=== PATIENT | female | born 1935 | race Asian ===

== ENCOUNTER 2018-10-21 05:33 | Inpatient (IN) | payer BC ==
[~2018-10-21] VITALS: Ht 160 cm; Wt 44.1 kg
[2018-10-21 06:11] LABS: BASOPHIL % 0.4 % (0-2); PLATELET COUNT 236 x10^3mcL (130-400)
[2018-10-21 06:12] LABS: RED CELL DISTRIBUTION WIDTH 17.8 % (11.5-14.5)
[2018-10-21] MEDS ORDERED: LIPI20 PO (06:20)
[2018-10-21] MEDS ORDERED: PEPCID20 MG PO (06:20)
[2018-10-21] MEDS ORDERED: NOR5 PO (06:20)
[2018-10-21] MEDS ORDERED: DETROL LA2 MG PO (06:21)
[2018-10-21] MEDS ORDERED: METFORMIN500 M1 PO (06:21)
[2018-10-21] MEDS ORDERED: MULTI-VITAMINS1 TAB PO (06:21)
[2018-10-21] MEDS ORDERED: CALCIUM CARB500 M1 PO (06:21)
[2018-10-21] MEDS ORDERED: DIO160 PO (06:22)
[2018-10-21] MEDS ORDERED: VITAMIN B121000 MCG PO (06:22)
[2018-10-21] MEDS ORDERED: DIOVAN80 MG PO (06:22)
[2018-10-21] MEDS ORDERED: COUMADIN2 MG PO (06:22)
[2018-10-21] MEDS ORDERED: TRIPLE ACTION JOINT PO (06:23)
[2018-10-21 06:30] LABS: CALCIUM 8.8 mg/dL (8.5-10.1); CARBON DIOXIDE 29.2 mmol/L (21-32); CHLORIDE SERUM 104 mmol/L (98-107); CREATININE SERUM 0.9 mg/dL (0.6-1.0); GLUCOSE SERUM 117 mg/dL (74-106); POTASSIUM SERUM 4.1 mmol/L (3.5-5.1); SODIUM SERUM 137 mmol/L (136-145)
[2018-10-21 06:34] LABS: ALBUMIN 3.4 g/dL (3.4-5.0); ALKALINE PHOSPHATASE 101 U/L (46-116); ALT/SGPT 22 U/L (14-59); AST/SGOT 19 U/L (15-37); BILIRUBIN TOTAL 0.33 mg/dL (0.20-1.00); TOTAL PROTEIN, SERUM 8.2 g/dL (6.4-8.2)
[2018-10-21 08:07] LABS: microscopic required? YES; urine erythrocyte NEGATIVE (NEGATIVE)
[2018-10-21 15:03] LABS: MAGNESIUM 2.1 mg/dL (1.8-2.4); PHOSPHOROUS 3.6 mg/dL (2.5-4.9)
[2018-10-21 15:10] LABS: CHOLESTEROL/HDL RATIO 2.1
[2018-10-21 15:20] VITALS: BP 148/68
[2018-10-21 15:26] VITALS: Ht 160 cm; Wt 44.1 kg
[2018-10-21 21:40] VITALS: BP 138/55
[2018-10-22 05:38] VITALS: BP 157/61
[2018-10-22 06:22] LABS: CALCIUM 8.3 mg/dL (8.5-10.1); CARBON DIOXIDE 25.7 mmol/L (21-32); CHLORIDE SERUM 102 mmol/L (98-107); CREATININE SERUM 0.7 mg/dL (0.6-1.0); GLUCOSE SERUM 129 mg/dL (74-106); MAGNESIUM 2.2 mg/dL (1.8-2.4); PHOSPHOROUS 3.2 mg/dL (2.5-4.9); POTASSIUM SERUM 3.6 mmol/L (3.5-5.1); SODIUM SERUM 135 mmol/L (136-145)
[2018-10-22 06:23] LABS: BASOPHIL % 0.2 % (0-2); PLATELET COUNT 241 x10^3mcL (130-400)
[2018-10-22 07:42] LABS: RED CELL DISTRIBUTION WIDTH 17.3 % (11.5-14.5)
[2018-10-22 09:06] VITALS: BP 135/39
[2018-10-22 12:15] VITALS: BP 127/27
[2018-10-22 17:48] VITALS: BP 134/57
[2018-10-22 20:58] VITALS: BP 144/55
[2018-10-23 05:05] VITALS: BP 133/61
[2018-10-23 07:25] LABS: BASOPHIL % 0.1 % (0-2); PLATELET COUNT 249 x10^3mcL (130-400)
[2018-10-23 07:27] LABS: RED CELL DISTRIBUTION WIDTH 17.5 % (11.5-14.5)
[2018-10-23 08:07] VITALS: BP 142/55
[2018-10-23 08:12] LABS: CALCIUM 8.1 mg/dL (8.5-10.1); CARBON DIOXIDE 24.7 mmol/L (21-32); CHLORIDE SERUM 104 mmol/L (98-107); CREATININE SERUM 0.6 mg/dL (0.6-1.0); GLUCOSE SERUM 116 mg/dL (74-106); MAGNESIUM 2.2 mg/dL (1.8-2.4); PHOSPHOROUS 2.6 mg/dL (2.5-4.9); POTASSIUM SERUM 3.5 mmol/L (3.5-5.1); SODIUM SERUM 139 mmol/L (136-145)
[2018-10-23 12:29] VITALS: BP 129/49
[2018-10-23 17:43] VITALS: BP 139/55
[2018-10-23 20:23] VITALS: BP 122/56
[2018-10-24 05:33] VITALS: BP 142/59
[2018-10-24 07:28] LABS: BASOPHIL % 0.2 % (0-2); PLATELET COUNT 246 x10^3mcL (130-400)
[2018-10-24 07:43] LABS: RED CELL DISTRIBUTION WIDTH 17.6 % (11.5-14.5)
[2018-10-24 07:48] LABS: CALCIUM 8.3 mg/dL (8.5-10.1); CARBON DIOXIDE 24.3 mmol/L (21-32); CHLORIDE SERUM 103 mmol/L (98-107); CREATININE SERUM 0.6 mg/dL (0.6-1.0); GLUCOSE SERUM 113 mg/dL (74-106); MAGNESIUM 2.1 mg/dL (1.8-2.4); PHOSPHOROUS 3.2 mg/dL (2.5-4.9); POTASSIUM SERUM 3.6 mmol/L (3.5-5.1); SODIUM SERUM 136 mmol/L (136-145)
[2018-10-24 08:45] VITALS: BP 129/53
[2018-10-24 12:50] VITALS: BP 138/51
[2018-10-24 16:44] VITALS: BP 132/53
[2018-10-24 21:03] VITALS: BP 150/54
[2018-10-25 05:40] VITALS: BP 146/65
[2018-10-25 06:34] LABS: BASOPHIL % 0.3 % (0-2); PLATELET COUNT 300 x10^3mcL (130-400)
[2018-10-25 07:17] LABS: CALCIUM 8.6 mg/dL (8.5-10.1); CARBON DIOXIDE 25.8 mmol/L (21-32); CHLORIDE SERUM 103 mmol/L (98-107); CREATININE SERUM 0.7 mg/dL (0.6-1.0); GLUCOSE SERUM 102 mg/dL (74-106); MAGNESIUM 2.1 mg/dL (1.8-2.4); PHOSPHOROUS 3.1 mg/dL (2.5-4.9); SODIUM SERUM 139 mmol/L (136-145)
[2018-10-25 08:22] VITALS: BP 141/51
[2018-10-25 12:03] VITALS: BP 129/54
[2018-10-25 16:18] VITALS: BP 146/58
[2018-10-25 21:41] VITALS: BP 132/52
[2018-10-26 05:17] VITALS: BP 155/57
[2018-10-26 06:27] LABS: CARBON DIOXIDE 25.9 mmol/L (21-32); CHLORIDE SERUM 102 mmol/L (98-107); CREATININE SERUM 0.7 mg/dL (0.6-1.0); GLUCOSE SERUM 88 mg/dL (74-106); MAGNESIUM 2.2 mg/dL (1.8-2.4); PHOSPHOROUS 3.7 mg/dL (2.5-4.9); SODIUM SERUM 139 mmol/L (136-145)
[2018-10-26 07:34] LABS: BASOPHIL % 0.5 % (0-2); PLATELET COUNT 328 x10^3mcL (130-400); RED CELL DISTRIBUTION WIDTH 17.9 % (11.5-14.5)
[2018-10-26 09:42] VITALS: BP 143/64
[2018-10-26 12:12] VITALS: BP 148/67
[2018-10-26 17:55] VITALS: BP 133/53
[2018-10-26 20:41] VITALS: BP 139/60
[2018-10-27 04:51] VITALS: BP 140/62
[2018-10-27 08:03] LABS: BASOPHIL % 0.2 % (0-2); PLATELET COUNT 326 x10^3mcL (130-400); RED CELL DISTRIBUTION WIDTH 17.5 % (11.5-14.5)
[2018-10-27 08:10] LABS: CALCIUM 8.9 mg/dL (8.5-10.1); CARBON DIOXIDE 27.4 mmol/L (21-32); CHLORIDE SERUM 100 mmol/L (98-107); CREATININE SERUM 0.7 mg/dL (0.6-1.0); GLUCOSE SERUM 105 mg/dL (74-106); POTASSIUM SERUM 4.3 mmol/L (3.5-5.1); SODIUM SERUM 136 mmol/L (136-145)
[2018-10-27 09:55] VITALS: BP 132/50
[2018-10-27] MEDS ORDERED: ECO81 PO (14:00)
[2018-10-27] MEDS ORDERED: DIO80 PO (14:02)
[2018-10-27 14:26] VITALS: BP 153/69
[2018-10-27 15:49] VITALS: BP 153/69
[2018-10-27 17:00] VITALS: BP 120/53
== END 2018-10-27 19:30 | DRG 488 ==
LOC: ED 05:33 → DU 14:31 → MU 14:31 → DU 14:54 → MU 14:57 → DU 16:49
PROVIDERS: Emergency Medicine; Family Medicine; General Practice
PROC: 0S9D3ZZ Drainage of Left Knee Joint, Percutaneous Approach (ICD-10-PCS; principal; 2018-10-22)
PROC: 0S9D3ZZ Drainage of Left Knee Joint, Percutaneous Approach (ICD-10-PCS; 2018-10-24)
PROC: 0S9D0ZZ Drainage of Left Knee Joint, Open Approach (ICD-10-PCS; 2018-10-26)
DX: M25.062 Hemarthrosis, left knee (principal); N17.0 Acute kidney failure with tubular necrosis; I69.354 Hemiplegia and hemiparesis following cerebral infarction affecting left non-dominant side; Z68.1 Body mass index [BMI] 19.9 or less, adult; N39.0 Urinary tract infection, site not specified; E11.9 Type 2 diabetes mellitus without complications; E83.51 Hypocalcemia; E78.5 Hyperlipidemia, unspecified; I10 Essential (primary) hypertension; D64.9 Anemia, unspecified; Z79.01 Long term (current) use of anticoagulants; Z79.84 Long term (current) use of oral hypoglycemic drugs; Z91.19 Patient's noncompliance with other medical treatment and regimen
CPT/HCPCS: 82962; 83880; 97110-GP; 97530-GP; J0696; J1170; J2001; J2270; J2405; J3010; J7509; Q0092; Q9967

== ENCOUNTER 2019-10-24 16:32 | Emergency (ER) | payer OTHER ==
[~2019-10-24] VITALS: Ht 157.5 cm; Wt 52.2 kg
[~2019-10-24 16:32] MED LIST: CALCIUM CARB500 M1 PO; COUMADIN2 MG PO; DETROL LA2 MG PO; DIO160 PO; DIO80 PO; DIOVAN80 MG PO; ECO81 PO; LIPI20 PO; METFORMIN500 M1 PO; MULTI-VITAMINS1 TAB PO; NOR5 PO; PEPCID20 MG PO; TRIPLE ACTION JOINT PO; VITAMIN B121000 MCG PO
[2019-10-24 16:39] VITALS: Ht 157.5 cm; Wt 52.2 kg
[2019-10-24 18:47] LABS: BASOPHIL % 0.5 % (0-2); PLATELET COUNT 156 x10^3mcL (130-400)
[2019-10-24 18:49] LABS: RED CELL DISTRIBUTION WIDTH 15.4 % (11.5-14.5)
[2019-10-24 18:54] LABS: CALCIUM 8.6 mg/dL (8.5-10.1); CARBON DIOXIDE 27.9 mmol/L (21-32); CHLORIDE SERUM 103 mmol/L (98-107); GLUCOSE SERUM 139 mg/dL (74-106); POTASSIUM SERUM 3.7 mmol/L (3.5-5.1); SODIUM SERUM 139 mmol/L (136-145)
[2019-10-25 00:47] VITALS: BP 144/45
== END 2019-10-25 00:47 | disposition home or self-care (01) ==
LOC: ED 16:32
PROVIDERS: Student in an Organized Health Care Education/Training Program
DX: M25.551 Pain in right hip (principal); I10 Essential (primary) hypertension; E11.9 Type 2 diabetes mellitus without complications; R22.41 Localized swelling, mass and lump, right lower limb; Z98.890 Other specified postprocedural states
CPT/HCPCS: 36415; 85378; Q0092

== ENCOUNTER 2020-01-05 10:23 | Emergency (ER) | payer OTHER ==
[~2020-01-05] VITALS: Ht 165.1 cm; Wt 65.8 kg
[2020-01-05 10:41] VITALS: Ht 165.1 cm; Wt 65.8 kg
[2020-01-05 11:25] LABS: UA SPECIFIC GRAVITY <=1.005 (1.005-1.035); microscopic required? YES; urine erythrocyte NEGATIVE (NEGATIVE)
[2020-01-05 11:27] LABS: BASOPHIL % 0.6 % (0-2); PLATELET COUNT 204 x10^3mcL (130-400)
[2020-01-05 11:28] LABS: RED CELL DISTRIBUTION WIDTH 15.6 % (11.5-14.5)
[2020-01-05 11:35] LABS: CALCIUM 9.2 mg/dL (8.5-10.1); CARBON DIOXIDE 26.9 mmol/L (21-32); CHLORIDE SERUM 103 mmol/L (98-107); CREATININE SERUM 0.9 mg/dL (0.6-1.0); GLUCOSE SERUM 99 mg/dL (74-106); POTASSIUM SERUM 4.1 mmol/L (3.5-5.1); SODIUM SERUM 139 mmol/L (136-145)
[2020-01-05 11:38] LABS: ALBUMIN 3.6 g/dL (3.4-5.0); ALKALINE PHOSPHATASE 123 U/L (46-116); ALT/SGPT 35 U/L (14-59); AST/SGOT 38 U/L (15-37); BILIRUBIN TOTAL 0.3 mg/dL (0.20-1.00); LIPASE 123 IU/L (73-393)
[2020-01-05 11:41] LABS: TOTAL PROTEIN, SERUM 8.5 g/dL (6.4-8.2)
[2020-01-05 12:53] VITALS: BP 161/57
== END 2020-01-05 14:46 | disposition home or self-care (01) ==
LOC: ED 10:23
PROVIDERS: Emergency Medicine
DX: K80.20 Calculus of gallbladder without cholecystitis without obstruction (principal); K21.9 Gastro-esophageal reflux disease without esophagitis; I10 Essential (primary) hypertension; E11.9 Type 2 diabetes mellitus without complications
CPT/HCPCS: J2405; J7030